=== PATIENT | male | born 1995 | race Hispanic/Latino ===

== ENCOUNTER 2016-11-22 18:23 | Emergency (ER) | payer SELFPAY ==
[2016-11-22 19:23] VITALS: BP 130/80
--- NOTE | 2016-11-22 21:36 | Emergency Department Report ---
HPI - General Chief Complaint: Upper Respiratory Infection Time Seen by Provider: 11/22/16 21:35 - HPI HPI: Patient here complaining of persistent cough for 2 weeks. He said he started coughing when started using vapor to try and quit smoking. Denies any fever or chills. Denies any chest pain or shortness of breath. Denies any nausea vomiting. He said he having pain in his back when he coughs. Denies taking any [id number] medication. Denies any medical problems. ED Past Medical Hx - Past Medical History Previous Medical History?: No - Surgical History Past Surgical History?: No - Family History Family history: no significant - Social History Smoking Status: Never Smoker Substance Use Type: None ED Review of Systems ROS: Stated complaint: PERSISTANT COUGH/LUNG PAIN Other details as noted in HPI Comment: All other systems reviewed and negative Constitutional: denies: chills, fever ENT: congestion. denies: ear pain, throat pain Respiratory: cough. denies: orthopnea, shortness of breath, SOB with exertion, SOB at rest, stridor, wheezing Gastrointestinal: denies: abdominal pain, nausea, vomiting Musculoskeletal: denies: back pain, arthralgia Skin: denies: rash Neurological: denies: headache, numbness, paresthesias, confusion, abnormal gait , vertigo Physical Exam - Physical Exam Vital Signs: Vital Signs 11/22/16 19:17 Temperature 98.1 F Pulse Rate 64 Blood Pressure 130/80 O2 Sat by Pulse 99 Oximetry General: This is a 21-year-old male well-nourished well-developed in no acute distress. Physical Exam: Head: Normocephalic atraumatic Mouth: Moist, no pharyngeal exudate or erythema. Uvula is midline and oral airway is patent. No facial swelling. No peritonsillar abscesses. Nose: Congested with erythema to mucosa. Clear Drainage. Maxillary and frontal sinuses nontender to palpate Neck: Supple, no C-spine tenderness, no tracheal deviation. Nontender to palpate. no adenopathy Ears: Bilateral TMs congested without erythema. Bilateral EAC without any redness swelling or drainage. Abdomen: Soft, nontender to palpate in all quadrants, normal bowel sounds in all quadrant and negative CVA tenderness bilaterally. Eyes: Bilateral pupils equal and reactive to light, bilateral EOM intact. Bilateral sclera and conjunctiva without injection. Normal accommodation. No Lungs: Patient with congestive cough and scattered wheezing to upper lung [place]. Normal work of breathing. Use of accessory muscle. extremity; No CCE. +2 pulses. No neurovascular compromise. PERRLA refill less than 3 seconds. Cardiovascular: S1-S2, regular rate rhythm. No murmurs. Skin: clean Dry and intact no rash no lesions Psych: Normal mood and behavior ED Course Vital Signs 11/22/16 19:17 Temperature 98.1 F Pulse Rate 64 Blood Pressure 130/80 O2 Sat by Pulse 99 Oximetry ED Medical Decision Making - Radiology Data Radiology results: report reviewed Chest x-ray revealed no acute cardiopulmonary processes. - Medical Decision Making ED course: Acute bronchitis and cough. I discussed with patient that I'll treat him with nebulizer treatment and. He has been having symptoms for more than 2 weeks he will be placed on antibiotic because more likely has bronchitis. Patient had agreed and bronchodilator therapy ordered along with Motrin. He was reported to me by nurse that patient asked to go outside to make a phone call but did not return. Patient was seen and given verbal information about his condition and direction of treatment plan. He did not come back to get his paperwork and chest x-rays results Critical care attestation.: If time is entered above; I have spent that time in minutes in the direct care of this critically ill patient, excluding procedure time. ED Disposition Clinical Impression: Cough Acute bronchitis Qualifiers: Bronchitis organism: unspecified organism Qualified Code(s): J20.9 - Acute bronchitis, unspecified Disposition: ELOPED Is pt being admited?: No Does the pt Need Aspirin: No Condition: Stable
--- NOTE | 2016-11-22 21:45 | XRay Report ---
FINAL REPORT PROCEDURE: XR CHEST ROUTINE 2V TECHNIQUE: PA and lateral chest radiographs were obtained. CPT 19239 HISTORY: cough X 2 weeks COMPARISON: No prior studies are available for comparison. FINDINGS: Heart: Normal. Mediastinum/Vessels: Normal. Lungs/Pleural space: Lungs are well-expanded. There are no infiltrates, effusions or pneumothoraces.. Bony thorax: No acute osseous abnormality. Other: IMPRESSION: There are no acute cardiopulmonary abnormalities..
[2016-11-22] MEDS ORDERED: XYLOCAINE 1% MPF 5 mL INFILTRATI ONE (21:50)
[2016-11-22] MEDS ORDERED: PROVENTIL IH ONE (21:50)
[2016-11-22] MEDS ORDERED: MOTRIN PO ONE (21:50)
[2016-11-22] MEDS ORDERED: ROCEPHIN IM STA (21:50)
[2016-11-22] MEDS ORDERED: ATROVENT IH ONE (21:50)
[2016-11-22] MEDS ORDERED: DELTASONE PO ONE (21:50)
== END 2016-11-22 23:05 | disposition left against medical advice (07) ==
LOC: ED 18:23
DX: J20.9 Acute bronchitis, unspecified (principal)
CPT/HCPCS: 71020; 99283